=== PATIENT | male | born 1980 | race Caucasian/White ===

== ENCOUNTER 2023-11-10 16:52 | Emergency (ER) | payer BC, SELFPAY ==
--- NOTE | 2023-11-10 16:54 | ED.EAR ---
HPI - Ear Problem General Chief complaint: Ear Stated complaint: Clogged Ear Time Seen by Provider: 11/10/23 16:54 Source: patient Mode of arrival: ambulatory Limitations: no limitations History of Present Illness HPI Narrative: Kenney is a 43-year-old male patient presenting to the clinic today with complaints of his bilat ear being clogged. Symptoms started on Friday after using Q-tips. Related Data Home Medications Medication Instructions Recorded Confirmed No Home Medications 06/05/20 11/10/23 Allergies Allergy/AdvReac Type Severity Reaction Status Date / Time No Known Allergies Allergy Unverified 06/05/20 14:14 Review of Systems Review of Systems: Pertinent positives per HPI. Patient denies any fever, chills, rash, headache, visual changes, dizziness, cough, runny nose, sore throat, shortness of breath, chest pain, palpitations, nausea, vomiting, diarrhea, constipation, abdominal pain, or any urinary issues. PMFSH Surgical History Surgical History S/P hip arthroscopy Family History Family History Mother Hypertension Hyperlipidemia Father Hypothyroidism, unspecified Grandparent , Age 86 Stroke Hypertension Hyperlipidemia Grandparent , Age 75 CHF, Mesothelioma No problems noted. Grandparent Hardening of the arteries of the heart Grandparent , Age 55 of Brain Aneurysm No problems noted. Social History Social History Smoking status: Never smoker Alcohol intake: current Alcohol use details: has 1 drink on special occasions Substance use: never Living arrangements: with family Occupation/Education: occupation Gender identity (if verbalized by the patient): Male Sexual Orientation (if Verbalized by the Patient): Straight or Heterosexual Comments At the time of my signature, I reviewed and agree with the nursing past medical, surgical, social, and family history. There is no relevant family history pertinent to the patient complaint. Exam Narrative: General: Well-developed, well nourished, in no apparent distress Head: Normocephalic, atraumatic Eyes: Pupils equally round and reactive to light bilaterally, EOM intact, sclera and conjunctive clear, no discharge, lids normal Ears: TMs intact and clear, ear canals clear, no drainage, grossly hearing normal. Nose: Nares patent, no discharge, no inflammation, no sinus tenderness. Mouth: Oropharynx without lesions or masses, good dentition, MMM. Neck: Supple, trachea midline, no enlargement of anterior or posterior cervical nodes, no thyroid masses or goiter palpable. Cardio: Regular rate and rhythm, s1 and s2 normal, no murmur appreciated. Resp: Clear to auscultation bilaterally anteriorly and posteriorly, no rhonchi, rales, wheezing or rubs Course Course Emergency Course: Portions of this record may have been created with voice recognition software. Level of Care: Express Care Visit Vital Signs Vital signs: Vital signs reviewed Procedures Ear Wax Removal Both Ears: Ear Wax Removal Date: 11/10/23 Results: Re-examined: cerumen removed completely TM Examination: TM(s) intact, normal appearance Ear Canal Exam: atraumatic Patient Tolerated Procedure: well and no complications Complications: no problems Technique: ear canal irrigated Additional Comments: Verbal consent obtained for ear irrigation. Risk and benefits explained and patient voiced understanding. Ear irrigation performed using an elephant ear and spray water bottle. Mixture of 1/2 peroxide 1/2 water used to irrigate ear canal. Cerumen impaction cleared and TM visualized without redness. Grossly hearing normal. Patient tolerated procedure well Medical D
[2023-11-10 16:57] VITALS: BP 117/76; PULSE 58; RESP 16; TEMP 36.6; O2SAT 100
== END 2023-11-10 17:25 | disposition home or self-care (01) ==
PROVIDERS: Emergency Provider Nurse Practitioner Family; PCP Family Medicine
DX: H61.23 Impacted cerumen, bilateral (principal)
CPT/HCPCS: 69209; 99212; G0463

== ENCOUNTER 2023-12-08 08:55 | Outpatient (CLI) | payer BC, SELFPAY ==
[2023-12-08 19:59] LABS: Basophils Absolute Auto 0.1 K/mm3 (0.0-0.1); Basophils Percent Auto 0.7 % (0.2-1.2); Eosinophils Absolute Auto 0.1 K/mm3 (0-0.3); Eosinophils Percent Auto 0.8 % (0-4.4); Hematocrit 42.3 % (42.0-52.0); Hemoglobin 13.6 g/dL (14.0-18.0); Immature Granulocyte Absolute 0.02 K/mm3 (0.00-0.031); Immature Granulocyte Percent A 0.3 % (0-0.5); Lymphocytes Absolute Auto 2.31 K/mm3 (0.9-3.2); Lymphocytes Percent Auto 32.5 % (18.3-44.2); Mean Corpuscular HGB Conc 32.2 g/dl (32-36); Mean Corpuscular Hemoglobin 29.1 pg (26-34); Mean Corpuscular Volume 90.6 fl (80-100); Mean Platelet Volume 10.3 fl (7.4-10.4); Monocytes Absolute Auto 0.5 K/mm3 (0.1-0.6); Monocytes Percent Auto 6.3 % (2.6-8.5); Neutrophils Absolute Auto 4.2 K/mm3 (1.3-6.7); Neutrophils Percent Auto 59.4 % (45.5-73.1); Platelet Count Result 335 k/mm3 (150-375); Red Blood Count 4.67 M/mm3 (4.6-6.20); Red Cell Distribution Width 12.2 % (11.5-14.5); White Blood Count 7.1 K/mm3 (4.5-10.0)
[2023-12-08 21:47] LABS: Alanine Aminotransferase 32 U/L (6-50); Albumin Level 4.5 g/dL (3.5-5.1); Alkaline Phosphatase 72 U/L (38-126); Anion Gap 6 mmol/L (4-12); Aspartate Amino Transferase 36 U/L (17-59); Blood Urea Nitrogen 13 mg/dL (9-20); Calcium 9.4 mg/dL (8.4-10.2); Carbon Dioxide 30 mmol/L (22-30); Chloride 102 mmol/L (98-107); Cholesterol 198 mg/dL (0-200); Estimated Glomerular Filt Rate > 60; Glucose 80 mg/dL (65-110); HDL Direct 39 mg/dL; Potassium 4.2 mmol/L (3.4-5.0); Sodium 138 mmol/L (137-145); Triglycerides 138 mg/dL (<150)
[2023-12-08 21:59] LABS: LDL Cholesterol Direct 126 mg/dL
== END 2023-12-08 08:56 | disposition home or self-care (01) ==
LOC: ANHGOSHLAB 08:56
PROVIDERS: PCP Family Medicine; Visit Provider Family Medicine
DX: R53.83 Other fatigue (principal); Z13.228 Encounter for screening for other metabolic disorders; Z13.220 Encounter for screening for lipoid disorders
CPT/HCPCS: 36415; 80053; 80061; 85025